=== PATIENT | female | born 1955 | race Caucasian/White ===

== ENCOUNTER 2019-11-04 17:10 | Inpatient (IN) | payer OTHER ==
[~2019-11-04] VITALS: Ht 170.2 cm; Wt 66.8 kg
[~2019-11-04 17:10] MED LIST: 0.92DISP2 IVF; ACET325T26 PO; ACID1TAB7 PO; AMLO-150 PO; BISA10SU4 PR; CARV6.2512 PO; FAMO20VI3 IVPush; HEPA50002 SQ; HYDR-3343 PO; HYDR20VI3 IV; INSU100I11 SQ-INSULIN; LEVE500V6 PO; LORA2VIA6 IVPush; MELA5TAB14 PO; ONDA4VIA60 IVPush; PROM25AM6 IM; SENN-193 PO; VALP500V5 IV
[2019-11-04] MEDS ORDERED: VANCOMYCIN PER PHARMACY MC ONE (17:30)
[2019-11-04] MEDS ORDERED: PLEASE ENTER HEIGHT AND WEIGHT MC SCH (17:30)
[2019-11-04] MEDS ORDERED: PIPERACILLIN/TAZO/PMX 3.375GM 50 ML IVPB ONE (17:30)
[2019-11-04 17:41] LABS: BASOPHILS # (AUTO) 0.03 x10^3/uL (0-0.1); BASOPHILS % (AUTO) 1 % (0-1); EOSINOPHILS # (AUTO) 0.22 x10^3/uL (0-0.4); EOSINOPHILS % (AUTO) 4 % (1-7); LYMPHOCYTES # (AUTO) 0.96 x10^3/uL (1-3.4); LYMPHOCYTES % (AUTO) 15 % (22-44); MD NO; MEAN CORPUSCULAR HGB CONC 32.6 g/dL (32.4-35.8); MEAN PLATELET VOLUME 7.2 fL (7.4-10.4); MONOCYTES # (AUTO) 0.51 x10^3/uL (0.2-0.8); MONOCYTES % (AUTO) 8 % (2-9); NEUTROPHILS # (AUTO) 4.62 x10^3/uL (1.8-6.8); NEUTROPHILS % (AUTO) 73 % (42-75); PLATELET COUNT 283 x10^3/uL (130-400); RED BLOOD COUNT 3.98 x10^6/uL (3.82-5.3); RED CELL DISTRIBUTION WIDTH 15.8 % (9.6-15.2)
[2019-11-04] MEDS ORDERED: DIVALPROEX (17:46)
[2019-11-04] MEDS ORDERED: VITAMIN D2 (17:46)
[2019-11-04] MEDS ORDERED: FAMOTIDINE (17:46)
[2019-11-04] MEDS ORDERED: SEVELAMER (17:46)
[2019-11-04] MEDS ORDERED: OXYBUTYNIN (17:46)
[2019-11-04] MEDS ORDERED: LOSARTAN (17:46)
--- NOTE | 2019-11-04 17:46 | NUR ---
PT IN HOSPITAL GOWN, ON CARDIAC AND VITALS MONITORS. BLOOD CULTURES HAVE BEEN DRAWN. EKG DONE. MED REC UPDATED PER EMS LIST PT UNABLE TO STATES HOME MEDS
[2019-11-04] MEDS ORDERED: VANCOMYCIN 1,500 MG in SODIUM CHLORIDE 0.9% 250 ML IV ONE (18:00)
--- NOTE | 2019-11-04 18:00 | NUR ---
NO FLUIDS FOR SEPSIS PROTOCOL AT THIS TIME PER ERP DR. NAJERA. PT BP STABLE, PT ON DIALYSIS. WILL CONTINUE TO MONITOR NEED FOR FLUIDS PER SEPSIS PROTOCOL
[2019-11-04 18:10] LABS: ALBUMIN 3.1 g/dL (3.4-5.0); ANION GAP 8 mmol/L (5-15); CALCIUM 8.8 mg/dL (8.5-10.1); CHLORIDE 95 mmol/L (98-107); CREATININE 5.68 mg/dL (0.55-1.02)
[2019-11-04 18:11] LABS: ALANINE AMINOTRANSFERASE < 6 U/L (12-78)
--- NOTE | 2019-11-04 18:11 | NUR ---
sister in law Kristy Root - [phone]
[2019-11-04 18:12] LABS: ALKALINE PHOSPHATASE 55 U/L (45-117); BILIRUBIN,TOTAL 0.4 mg/dL (0.2-1.0); TOTAL PROTEIN 7.2 g/dL (6.4-8.2)
[2019-11-04] MEDS ORDERED: HYDR100T25 PO (18:18)
[2019-11-04] MEDS ORDERED: DOCU-131 PO (18:18)
[2019-11-04] MEDS ORDERED: DIVA500T17 PO (18:18)
[2019-11-04] MEDS ORDERED: ERGO500017 PO (18:18)
[2019-11-04] MEDS ORDERED: LOSA100T14 PO (18:18)
[2019-11-04] MEDS ORDERED: SEVE800T8 PO (18:18)
[2019-11-04] MEDS ORDERED: FAMO-79 PO (18:18)
[2019-11-04] MEDS ORDERED: AMLO-150 PO (18:18)
--- NOTE | 2019-11-04 18:19 | NUR ---
PT SISTER IN LAW, CHARMAINE, WHO IS CAREGIVER AT HOME, ABLE TO REVIEW PT HOME MEDS. PER SISTER, PT USES WHEELCHAIR FOR AMULBATION AT HOME. PER CHARMAINE, PT HAS BEEN ALTERED SINCE MONDAY AFTER DIALYSIS.
[2019-11-04] MEDS ORDERED: PIPERACILLIN/TAZO/PMX 3.375GM 50 ML ONE (18:24)
[2019-11-04] MEDS ORDERED: PATI8.4P PO (18:41)
[2019-11-04 18:48] LABS: MICROSCOPIC INDICATED
[2019-11-04] MEDS ORDERED: ACETAMINOPHEN 650 MG SUPP PR PRN (19:00)
--- NOTE | 2019-11-04 19:02 | NUR ---
REPORT TO MARLEE KNOX
[2019-11-04] MEDS ORDERED: ACETAMINOPHEN 650 MG SUPP ONE (19:16)
[2019-11-04] MEDS ORDERED: CEFTRIAXONE PMX 1GM/50ML 50 ML IV ONE (19:30)
[2019-11-04] MEDS: HEPARIN 5,000 UNITS/ML, 1ML SQ SCH (20:00)
[2019-11-04] MEDS ORDERED: POLYETHYLENE GLYCOL 17 GM PACKET PO PRN (20:00)
[2019-11-04] MEDS: CEFTRIAXONE PMX 1GM/50ML 50 ML IV SCH (20:00)
[2019-11-04] MEDS ORDERED: ONDANSETRON ODT 4 MG PO PRN (20:00)
[2019-11-04] MEDS ORDERED: BISACODYL 10 MG SUPP PR PRN (20:00)
[2019-11-04] MEDS ORDERED: FLUCONAZOLE 200 MG/100 ML 100 ML IV ONE (20:00)
[2019-11-04] MEDS ORDERED: ERGOCALCIFEROL 50,000 UNIT CAPSULE PO SCH (20:00)
--- NOTE | 2019-11-04 20:34 | NUR ---
Pt placed on hospital bed. All monitors in place, Vancomycin infusing per emar. Pt a&ox2 at this time. [address], pt resting comfortably. Will continue to monitor.
[2019-11-04] MEDS: SEVELAMER CARBONATE 800MG TAB PO SCH (21:00)
[2019-11-04] MEDS ORDERED: HYDRALAZINE HCL 100 MG PO SCH (21:00)
[2019-11-04] MEDS: SODIUM CHLORIDE FLUSH 10ML SYR IVF SCH (21:00)
[2019-11-04] MEDS ORDERED: DIVALPROEX 500 MG TAB.ER.24H ONE (21:49)
[2019-11-04] MEDS ORDERED: CEFTRIAXONE PMX 1GM/50ML 50 ML ONE (21:49)
[2019-11-04] MEDS ORDERED: FAMOTIDINE 20 MG TABLET ONE (21:49)
[2019-11-04] MEDS: FAMOTIDINE 20 MG TABLET PO SCH (22:04)
[2019-11-04] MEDS: DIVALPROEX 500 MG TAB.ER.24H PO SCH (22:04)
--- NOTE | 2019-11-04 22:41 | NUR ---
When administering medications, pt was acting more lethargic than normal. BS found to be 69, pt given jelly and orange juice and woke up a little more. BS now 95. Attending notified.
--- NOTE | 2019-11-04 22:49 | NUR ---
Meds requested from pharmacy
[2019-11-05] MEDS: HEPARIN 5,000 UNITS/ML, 1ML SQ SCH ×3 (04:00→20:03)
[2019-11-05 05:55] LABS: BASOPHILS # (AUTO) 0.04 x10^3/uL (0-0.1); BASOPHILS % (AUTO) 1 % (0-1); EOSINOPHILS # (AUTO) 0.24 x10^3/uL (0-0.4); EOSINOPHILS % (AUTO) 5 % (1-7); LYMPHOCYTES # (AUTO) 0.79 x10^3/uL (1-3.4); LYMPHOCYTES % (AUTO) 15 % (22-44); MD NO; MEAN CORPUSCULAR HGB CONC 32.1 g/dL (32.4-35.8); MEAN CORPUSCULAR VOLUME 93.3 fL (80-100); MEAN PLATELET VOLUME 6.6 fL (7.4-10.4); MONOCYTES # (AUTO) 0.59 x10^3/uL (0.2-0.8); MONOCYTES % (AUTO) 11 % (2-9); NEUTROPHILS # (AUTO) 3.69 x10^3/uL (1.8-6.8); NEUTROPHILS % (AUTO) 69 % (42-75); PLATELET COUNT 239 x10^3/uL (130-400); RED BLOOD COUNT 3.99 x10^6/uL (3.82-5.3)
[2019-11-05 06:03] LABS: ANION GAP 6 mmol/L (5-15); CALCIUM 8.6 mg/dL (8.5-10.1); CHLORIDE 97 mmol/L (98-107); CREATININE 6.22 mg/dL (0.55-1.02)
--- NOTE | 2019-11-05 07:34 | NUR ---
REPORT TAKEN FROM LISETTE HUMPHREY. PATIENT IS A DIALYSIS PATIENT. SHE HAD DIALYSIS YESTERDAY. SHE IS IN ROOM, RAILS UP, ON HOSPITAL BED, VSS.
[2019-11-05] MEDS: SODIUM CHLORIDE FLUSH 10ML SYR IVF SCH ×4 (08:00→20:03)
[2019-11-05] MEDS ORDERED: AMLODIPINE 5 MG TABLET ONE (08:08)
[2019-11-05] MEDS ORDERED: DIVALPROEX 500 MG TAB.ER.24H ONE (08:08)
[2019-11-05] MEDS ORDERED: DOCUSATE 100 MG CAPSULE ONE (08:09)
[2019-11-05] MEDS: AMLODIPINE 5 MG TABLET PO SCH (08:51)
[2019-11-05] MEDS: DOCUSATE 100 MG CAPSULE PO SCH (08:51)
[2019-11-05] MEDS: DIVALPROEX 500 MG TAB.ER.24H PO SCH ×2 (08:52→20:30)
[2019-11-05] MEDS: LOSARTAN 50MG TABLET PO SCH (08:52)
[2019-11-05] MEDS: SENNA/DOCUSATE TABLET PO SCH (08:53)
[2019-11-05] MEDS: PATIROMER HOMEMEDPO SCH ×3 (08:53→16:00)
[2019-11-05] MEDS: SEVELAMER CARBONATE 800MG TAB PO SCH ×3 (08:53→20:30)
--- NOTE | 2019-11-05 08:59 | NUR ---
FSBS 66. WILL CALL
[2019-11-05] MEDS ORDERED: DEXTROSE 50%, 50ML SYRINGE ONE (09:09)
--- NOTE | 2019-11-05 09:12 | NUR ---
CALLED HOSPITALIST MOI ABOUT FSBS 66, GOT ORDERS.
--- NOTE | 2019-11-05 09:16 | NUR ---
WHEN I SPOKE TO MOI AMAYA ABOUT FSBS 66 SHE SAID GIVE AMP OF D50 AND SHE WOULD PUT ORDERS IT. DID DIRECTED.
[2019-11-05] MEDS ORDERED: DEXTROSE 4 GM TAB.CHEW PO PRN (09:30)
[2019-11-05] MEDS ORDERED: GLUCAGON 1 MG IM PRN (09:30)
[2019-11-05] MEDS ORDERED: DEXTROSE 50%, 50ML SYRINGE IVPush PRN (09:30)
--- NOTE | 2019-11-05 09:53 | NUR ---
FSBS 143. REPORT TO ISABEL. PATIENT VSS.
--- NOTE | 2019-11-05 09:54 | NUR ---
REPORT RECIEVED FROM LISETTE VARNER. ASSUMED CARE
--- NOTE | 2019-11-05 11:49 | NUR ---
HELPED PT UP TO COMODE. FOOD TRAY ORDERED.
--- NOTE | 2019-11-05 12:46 | NUR ---
RENAL DIET PROVIDED.
[2019-11-05 17:20] VITALS: BP 159/76
[2019-11-05 20:00] VITALS: BP 144/61
[2019-11-05] MEDS ORDERED: FLUCONAZOLE 100MG/50ML 100 MG in BAG 1 EACH IV SCH (20:00)
[2019-11-05] MEDS: CEFTRIAXONE PMX 1GM/50ML 50 ML IV SCH (20:03)
[2019-11-05] MEDS: FAMOTIDINE 20 MG TABLET PO SCH (20:30)
[2019-11-05] MEDS: ACETAMINOPHEN 325 MG TABLET PO PRN (21:40)
[2019-11-06 02:30] VITALS: BP 138/63
[2019-11-06] MEDS: HEPARIN 5,000 UNITS/ML, 1ML SQ SCH ×3 (04:11→21:10)
[2019-11-06] MEDS: PATIROMER HOMEMEDPO SCH ×3 (07:00→16:00)
[2019-11-06 07:16] LABS: ANION GAP 7 mmol/L (5-15); CALCIUM 8.6 mg/dL (8.5-10.1); CHLORIDE 97 mmol/L (98-107); CREATININE 7.44 mg/dL (0.55-1.02)
[2019-11-06] MEDS: DIVALPROEX 500 MG TAB.ER.24H PO SCH ×2 (08:29→21:12)
[2019-11-06] MEDS: DOCUSATE 100 MG CAPSULE PO SCH (08:30)
[2019-11-06] MEDS: AMLODIPINE 5 MG TABLET PO SCH (08:30)
[2019-11-06] MEDS: SEVELAMER CARBONATE 800MG TAB PO SCH ×3 (08:30→21:12)
[2019-11-06] MEDS: SENNA/DOCUSATE TABLET PO SCH (08:30)
[2019-11-06] MEDS: LOSARTAN 50MG TABLET PO SCH (08:30)
[2019-11-06] MEDS: SODIUM CHLORIDE FLUSH 10ML SYR IVF SCH ×4 (08:31→21:11)
[2019-11-06 08:46] VITALS: BP 153/73
[2019-11-06 12:05] VITALS: BP 143/72
[2019-11-06 19:44] VITALS: BP 128/65
[2019-11-06] MEDS: FAMOTIDINE 20 MG TABLET PO SCH (21:12)
[2019-11-06] MEDS: FLUCONAZOLE 100 MG TABLET PO SCH (21:12)
[2019-11-06] MEDS: ACETAMINOPHEN 325 MG TABLET PO PRN (23:00)
[2019-11-07 01:04] VITALS: BP 150/70
[2019-11-07 02:08] VITALS: BP 165/94
[2019-11-07] MEDS: PATIROMER HOMEMEDPO SCH ×3 (04:02→16:00)
[2019-11-07] MEDS: HEPARIN 5,000 UNITS/ML, 1ML SQ SCH ×3 (04:46→22:37)
[2019-11-07 07:35] LABS: ANION GAP 8 mmol/L (5-15); CALCIUM 8.6 mg/dL (8.5-10.1); CHLORIDE 96 mmol/L (98-107); CREATININE 4.75 mg/dL (0.55-1.02)
[2019-11-07 07:56] VITALS: BP 163/67
[2019-11-07] MEDS: SODIUM CHLORIDE FLUSH 10ML SYR IVF SCH ×4 (09:00→20:58)
[2019-11-07] MEDS: DIVALPROEX 500 MG TAB.ER.24H PO SCH ×2 (09:50→20:48)
[2019-11-07] MEDS: SEVELAMER CARBONATE 800MG TAB PO SCH ×2 (09:50→18:07)
[2019-11-07] MEDS: DOCUSATE 100 MG CAPSULE PO SCH (09:50)
[2019-11-07] MEDS: AMLODIPINE 5 MG TABLET PO SCH (09:51)
[2019-11-07] MEDS: LOSARTAN 50MG TABLET PO SCH (09:51)
[2019-11-07] MEDS: SENNA/DOCUSATE TABLET PO SCH (09:53)
[2019-11-07 12:53] VITALS: BP 148/66
[2019-11-07 17:39] VITALS: BP 144/65
[2019-11-07 19:09] VITALS: BP 146/66
[2019-11-07] MEDS: FLUCONAZOLE 100 MG TABLET PO SCH (20:48)
[2019-11-07] MEDS: FAMOTIDINE 20 MG TABLET PO SCH (20:48)
[2019-11-08 00:42] VITALS: BP 157/70
[2019-11-08] MEDS: HEPARIN 5,000 UNITS/ML, 1ML SQ SCH ×2 (06:00→14:59)
[2019-11-08] MEDS: PATIROMER HOMEMEDPO SCH ×3 (07:00→16:00)
[2019-11-08 07:54] VITALS: BP 161/72
[2019-11-08] MEDS: SEVELAMER CARBONATE 800MG TAB PO SCH ×3 (08:00→17:24)
[2019-11-08 08:39] LABS: BASOPHILS # (AUTO) 0.01 x10^3/uL (0-0.1); BASOPHILS % (AUTO) 0 % (0-1); EOSINOPHILS # (AUTO) 0.38 x10^3/uL (0-0.4); EOSINOPHILS % (AUTO) 7 % (1-7); LYMPHOCYTES # (AUTO) 0.74 x10^3/uL (1-3.4); LYMPHOCYTES % (AUTO) 14 % (22-44); MD NO; MEAN CORPUSCULAR HEMOGLOBIN 30.2 pg (27.0-34.8); MEAN CORPUSCULAR HGB CONC 32.5 g/dL (32.4-35.8); MEAN CORPUSCULAR VOLUME 92.8 fL (80-100); MEAN PLATELET VOLUME 6.6 fL (7.4-10.4); MONOCYTES # (AUTO) 0.54 x10^3/uL (0.2-0.8); MONOCYTES % (AUTO) 10 % (2-9); NEUTROPHILS % (AUTO) 69 % (42-75); PLATELET COUNT 292 x10^3/uL (130-400); RED BLOOD COUNT 3.87 x10^6/uL (3.82-5.3); RED CELL DISTRIBUTION WIDTH 15.7 % (9.6-15.2)
[2019-11-08 08:48] LABS: ANION GAP 9 mmol/L (5-15); CALCIUM 8.5 mg/dL (8.5-10.1); CHLORIDE 97 mmol/L (98-107); CREATININE 6.11 mg/dL (0.55-1.02)
[2019-11-08] MEDS: SODIUM CHLORIDE FLUSH 10ML SYR IVF SCH ×2 (12:42→12:43)
[2019-11-08] MEDS: DOCUSATE 100 MG CAPSULE PO SCH (12:44)
[2019-11-08] MEDS: AMLODIPINE 5 MG TABLET PO SCH (12:44)
[2019-11-08] MEDS: DIVALPROEX 500 MG TAB.ER.24H PO SCH (12:44)
[2019-11-08] MEDS: SENNA/DOCUSATE TABLET PO SCH (12:45)
[2019-11-08] MEDS: LOSARTAN 50MG TABLET PO SCH (12:45)
[2019-11-08 14:12] VITALS: BP 136/85
[2019-11-08] MEDS ORDERED: HEPA50002 SQ (14:31)
[2019-11-08] MEDS ORDERED: FLUC100T PO (14:31)
[2019-11-08 17:16] VITALS: BP 159/68
[2019-11-08 18:40] VITALS: BP 137/62
== END 2019-11-09 05:38 | disposition home or self-care (01) | DRG 871 ==
LOC: ED 17:39 → EDIP 19:38 → 4NE 11-05 16:54 → 4WST 11-07 01:55
PROVIDERS: ADMIT Internal Medicine; ATTEND Hospitalist
DX: A41.9 Sepsis, unspecified organism (principal); G93.41 Metabolic encephalopathy; N18.6 End stage renal disease; N39.0 Urinary tract infection, site not specified; E87.1 Hypo-osmolality and hyponatremia; I13.2 Hypertensive heart and chronic kidney disease with heart failure and with stage 5 chronic kidney disease, or end stage renal disease; I50.32 Chronic diastolic (congestive) heart failure; J96.11 Chronic respiratory failure with hypoxia; D63.1 Anemia in chronic kidney disease; E11.22 Type 2 diabetes mellitus with diabetic chronic kidney disease; E11.649 Type 2 diabetes mellitus with hypoglycemia without coma; E78.5 Hyperlipidemia, unspecified; G40.909 Epilepsy, unspecified, not intractable, without status epilepticus; I45.9 Conduction disorder, unspecified; I25.10 Atherosclerotic heart disease of native coronary artery without angina pectoris; J32.0 Chronic maxillary sinusitis; J44.9 Chronic obstructive pulmonary disease, unspecified; Z20.828 Contact with and (suspected) exposure to other viral communicable diseases; Z78.9 Other specified health status; I25.2 Old myocardial infarction; Z86.73 Personal history of transient ischemic attack (TIA), and cerebral infarction without residual deficits; Z99.2 Dependence on renal dialysis; Z87.891 Personal history of nicotine dependence; Z79.899 Other long term (current) drug therapy
CPT/HCPCS: 36415; 70450; 71045; 80048; 80053; 81001; 82962; 83605; 83615; 83735; 83880; 84100; 84145; 85025; 85379; 86140; 86704; 86706; 87040; 87086; 87106; 87340; 90935; 93005; 96374; 99291; G0378; J0696; J1644; J2543; J3370; J1450; J7050; U0001-CS